=== PATIENT | female | born 1980 | race Caucasian/White ===

== ENCOUNTER 2021-11-14 20:07 | Emergency (ER) | payer SELFPAY ==
[~2021-11-14] VITALS: Ht 154 cm; Wt 127.0 kg
--- NOTE | 2021-11-14 22:22 | ED General ---
General Chief Complaint: COVID19 Suspect/Confirmed Stated Complaint: VOMITING/FEVER/BODYACHES Source of Information: Patient Exam Limitations: No Limitations (ANDREIA CASTANO) History of Present Illness Date Seen by Provider: Nov 14, 2021 Time Seen by Provider: 22:10 Initial Comments This is an otherwise healthy 41 YO female presenting to the ED with nausea, vomiting, and bilateral thigh pain for the past 3 days. Has taken Tylenol witho ut improvement and came in tonight because the pain was worsening. No diarrhea or blood in the vomit, but has noted low-grade fever of 99-100 F over the past few days. Not COVID vaccinated, but has gotten the flu vaccine. No known sick contacts or COVID exposures. Severity: Mild Associated Systoms: No Chest Pain, No Cough; Fever/Chills (ANDREIA CASTANO) Allergies and Home Medications Allergies Coded Allergies: No Known Drug Allergies (Unverified , 11/14/21) Patient Home Medication List Home Medication List Reviewed: Yes (BHARGAVI GUERRERO MD) Ondansetron (Ondansetron Odt) 4 Mg Tab.rapdis, 4 MG PO Q8H PRN for nausea Prescribed by: BHARGAVI GUERRERO on 11/14/21 [id number] Review of Systems Review of Systems Constitutional: No chills; fever EENTM: No blurred vision, No double vision Respiratory: No cough, No short of breath Cardiovascular: No chest pain, No edema Gastrointestinal: abdominal pain, nausea, vomiting Genitourinary: No dysuria, No frequency Musculoskeletal: see HPI; No back pain Skin: no symptoms reported Psychiatric/Neurological: Denies Headache, Denies Numbness Hematologic/Lymphatic: No Symptoms Reported Immunological/Allergic: no symptoms reported (ANDREIA CASTANO) All Other Systems Reviewed Negative Unless Noted: Yes (Negative excepted noted.) (ANDREIA CASTANO) Past Fwhbrci-Epeqcq-Yhhfpt Hx Patient Social History Tobacco Use?: No Substance use?: No Alcohol Use?: No Pt feels they are or have been: No (ANDREIA CASTANO) Immunizations Up To Date Influenza Vaccine Up-to-Date: Yes; Up-to-Date (ANDREIA CASTANO) Physical Exam Vital Signs Vital Signs - First Documented 11/14/21 21:50 Temp 37.2 Pulse 101 Resp 20 B/P (MAP) 146/104 (118) Pulse Ox 97 O2 Delivery Room Air (BHARGAVI GUERRERO MD) Vital Signs Capillary Refill : (ANDREIA CASTANO MED STUDENT) Height, Weight, BMI Height: '" Weight: lbs. oz. kg; BMI Method: General Appearance: No Apparent Distress, WD/WN Eyes: Bilateral Eye Normal Inspection, Bilateral Eye EOMI HEENT: PERRL/EOMI, Other (dry mucous membranes) Neck: Normal Inspection, Supple Respiratory: Chest Non Tender, Lungs Clear, Normal Breath Sounds, No Accessory Muscle Use, No Respiratory Distress Cardiovascular: No Edema, No Murmur, Normal Peripheral Pulses, Other (borderline tachycardia) Gastrointestinal: Non Tender, Soft; No Guarding, No Rebound Back: No CVA Tenderness; No Decreased Range of Motion Extremity: Normal Inspection, Normal Range of Motion, No Calf Tenderness, No Pedal Edema Neurologic/Psychiatric: Alert, Oriented x3, No Motor/Sensory Deficits, Normal Mood/Affect Skin: Normal Color, Warm/Dry (ANDREIA CASTANO MED STUDENT) Progress/Results/Core Measures Suspected Sepsis SIRS Temperature: Pulse: Respiratory Rate: Blood Pressure / Mean: Laboratory Tests 11/14/21 22:00: Creatinine 0.78 (ANDREIA CASTANO MED STUDENT) Results/Orders Lab Results Laboratory Tests Test 11/14/21 20:43 11/14/21 22:00 Range/Units Influenza Type A (RT-PCR) Not Detected Not Detecte Influenza Type B (RT-PCR) Not Detected Not Detecte SARS-CoV-2 RNA (RT-PCR) Not Detected Not Detecte Sodium Level 134 L 135-145 MMOL/L Potassium Level 2.8 L 3.6-5.0 MMOL/L Chloride Level 99 98-107 MMOL/L Carbon Dioxide Level 22 21-32 MMOL/L Anion Gap 13 5-14 MMOL/L Blood Urea Nitrogen 12 7-18 MG/DL Creatinine 0.78 0.60-1.30 MG/DL Estimat Glomerular Filtration Rate 81 BUN/Creatinine Ratio 15 Glucose Level 121 H 70-105 MG/DL Calcium Level 8.6 8.5-10.1 MG/DL (BHARGAVI GUERRERO MD) My Orders Orders - BHARGAVI GUERRERO MD Basic Metabolic Panel (11/14/21 22:25) Lactated Ringers (Lr 1000 Ml Iv Solution (11/14/21 22:30) Ketorolac Injection (Toradol Injection) (11/14/21 22:30) Ondansetron Injection (Zofran Injectio (11/14/21 22:30) Potassium Chloride (Tablet) (K Dur Table (11/14/21 23:00) Rx-Ondansetron Po (Rx-Zofran Po) (11/14/21 23:32) (BHARGAVI GUERRERO MD) Medications Given in ED (BHARGAVI GUERRERO MD) Vital Signs/I&O 11/14/21 11/15/21 21:50 00:05 Temp 37.2 37.2 Pulse 101 90 Resp 20 20 B/P (MAP) 146/104 (118) 142/93 Pulse Ox 97 100 O2 Delivery Room Air Room Air (BHARGAVI GUERRERO MD) Vital Signs/I&O Capillary Refill : (ANDREIA CASTANO MED STUDENT) Progress Note : Time: 11:59 Progress Note 41-year-old female with a chief complaint of nausea vomiting epigastric discomfort for 3 days. No sick contacts or recent travel. Denies diarrhea. Has had "low-grade" temperature. Not Covid vaccinated but no chest pain, shortness of breath or cough. Physical exam is unremarkable, mild epigastric tenderness on palpation but otherwise a benign abdomen. Assessment remarkable for hypokalemia, replaced with 1 L of LR and 40 mEq of K- Dur. She also received some Zofran and Toradol. 0000 At discharge patient feels better; Home with zofran, instructions for hydration/potassium replacement via fluids (BHARGAVI GUERRERO MD) Departure Impression Primary Impression: Nausea and vomiting Qualified Codes: R11.14 - Bilious vomiting Additional Impression: Hypokalemia due to excessive gastrointestinal loss of potassium Disposition: 01 HOME, SELF-CARE Condition: Stable Departure-Patient Inst. Decision time for Depature: 23:30 (BHARGAVI GUERRERO MD) Referrals: [facility] [place] Patient Instructions: Hypokalemia (DC), Nausea and Vomiting, Adult (DC) Add. Discharge Instructions: Drink plenty of fluids to stay well-hydrated. Pedialyte will help replace your potassium over the course of the next couple of days. I have sent a prescription for nausea medicine to your [facility] pharmacy. I have also given you some tablets tonight to help control your nausea. [id number] Tylenol extra strength 2 tablets every 6 hours as needed for stomach pain. Try and avoid ibuprofen-containing products as they can upset your stomach when you are not eating well. Come back to the emergency room if you have worsening nausea vomiting, pain, fever or any other emergent concerning symptoms. Scripts Ondansetron (Ondansetron Odt) 4 Mg Tab.rapdis 4 MG PO Q8H PRN for nausea, #15 TAB Prov: BHARGAVI GUERRERO MD 11/14/21 Verification and Attestation of Medical Student E/M Service A medical student performed and documented this service in my presence. I reviewed and verified all information documented by the medical student and made modifications to such information, when appropriate. I personally performed the physical exam and medical decision making. Bhargavi Guerrero, Nov 15, 2021,00:00 (BHARGAVI GUERRERO MD) ANDREIA CASTANO MED STUDENT Nov 14, 2021 22:22 BHARGAVI GUERRERO MD Nov 14, 2021 23:32
[2021-11-14] MEDS ORDERED: ONDANSETRON 4 MG/2 ML (SDV) Z0FRAN IVP ONE (22:30)
[2021-11-14] MEDS ORDERED: KETOROLAC 30 MG/ML VIAL IVP ONE (22:30)
[2021-11-14] MEDS ORDERED: LACTATED RINGERS 1,000 ML IV SCH (22:30)
[2021-11-14 22:50] LABS: POTASSIUM 2.8 MMOL/L (3.6-5.0)
[2021-11-14 22:51] LABS: CALCIUM 8.6 MG/DL (8.5-10.1)
[2021-11-14 22:55] LABS: CREATININE SERUM 0.78 MG/DL (0.60-1.30)
[2021-11-14] MEDS ORDERED: KCL 20 MEQ TAB (K-DUR) PO ONE (23:00)
[2021-11-14] MEDS ORDERED: ONDA4TAB11 PO (23:32)
[2021-11-14] MEDS ORDERED: RX-ONDANSETRON 4 MG ODT (ZOFRAN) PPK #4 PO STA (23:32)
[2021-11-15 00:05] VITALS: BP 142/93
== END 2021-11-15 00:05 | disposition home or self-care (01) ==
LOC: EDUNIT# 20:07 → ER 20:11
DX: R11.2 Nausea with vomiting, unspecified (principal); E87.6 Hypokalemia; Z20.822 Contact with and (suspected) exposure to COVID-19
CPT/HCPCS: 36415; 80048; 87636